=== PATIENT | female | born 2005 | race Caucasian/White ===

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

== ENCOUNTER 2024-01-07 11:42 | Emergency (ER) | payer BC | END 2024-01-07 12:30 | disposition home or self-care (01) | LOC: CC.ED 11:42 | DX: J02.8 Acute pharyngitis due to other specified organisms (principal); Z79.899 Other long term (current) drug therapy | CPT/HCPCS: 99283 ==